=== PATIENT | male | born 1960 | race Caucasian/White ===

== ENCOUNTER 2017-03-23 08:55 | Day surgery (SDC) | payer OTHER ==
[~2017-03-23] VITALS: Ht 175.3 cm; Wt 91.3 kg
[~2017-03-23 08:55] MED LIST: Aspirin EC81 MG
== END 2017-03-23 11:12 | disposition home or self-care (01) ==
LOC: ORSCSDS 08:55
PROVIDERS: Internal Medicine Gastroenterology
PROC: 0DJD8ZZ Inspection of Lower Intestinal Tract, Via Natural or Artificial Opening Endoscopic (ICD-10-PCS; principal; 2017-03-23 10:30)
DX: Z86.010 Personal history of colon polyps (principal); B19.20 Unspecified viral hepatitis C without hepatic coma; F17.210 Nicotine dependence, cigarettes, uncomplicated
CPT/HCPCS: J0330; J1980; J2405; J7120

== ENCOUNTER 2017-03-26 08:54 | Day surgery (SDC) | payer OTHER | END 2017-03-26 22:53 | disposition home or self-care (01) | LOC: US 08:54 | PROVIDERS: Radiology Diagnostic Radiology | PROC: 0FB03ZX Excision of Liver, Percutaneous Approach, Diagnostic (ICD-10-PCS; principal; 2017-03-26 10:00) | DX: B18.2 Chronic viral hepatitis C (principal); Z86.010 Personal history of colon polyps; F17.210 Nicotine dependence, cigarettes, uncomplicated; D69.6 Thrombocytopenia, unspecified; K74.60 Unspecified cirrhosis of liver | CPT/HCPCS: 47000; 76942; 88307; 88313 ==

== ENCOUNTER 2017-05-08 11:32 | Day surgery (SDC) | payer OTHER ==
[~2017-05-08] VITALS: Ht 175.3 cm; Wt 90.2 kg
== END 2017-05-08 14:28 | disposition home or self-care (01) ==
LOC: ORSCSDS 11:32
PROVIDERS: Internal Medicine Gastroenterology
PROC: 0DBL8ZX Excision of Transverse Colon, Via Natural or Artificial Opening Endoscopic, Diagnostic (ICD-10-PCS; principal; 2017-05-08 13:00)
PROC: 0DBN8ZX Excision of Sigmoid Colon, Via Natural or Artificial Opening Endoscopic, Diagnostic (ICD-10-PCS; principal; 2017-05-08 13:00)
PROC: 0DBM8ZX Excision of Descending Colon, Via Natural or Artificial Opening Endoscopic, Diagnostic (ICD-10-PCS; principal; 2017-05-08 13:00)
DX: Z86.010 Personal history of colon polyps (principal); D12.3 Benign neoplasm of transverse colon; K63.5 Polyp of colon; K57.30 Diverticulosis of large intestine without perforation or abscess without bleeding; K64.8 Other hemorrhoids; F17.210 Nicotine dependence, cigarettes, uncomplicated
CPT/HCPCS: 88305; J1980; J2250; J3010; J7120

== ENCOUNTER 2022-05-02 11:38 | Inpatient (IN) | payer OTHER ==
[~2022-05-02] VITALS: Ht 177.8 cm; Wt 97.5 kg
[2022-05-02 11:55] LABS: Calcium, Ionized (POC) 0.77 mmol/L (1.10-1.46); Chloride (POC) 106 mmol/L (98-108); Creatinine (POC) 1.8 mg/dL (0.8-1.3); Glucose (ISTAT POC) 111 mg/dL (70-99); Hemoglobin (POC) 15.6 g/dL (13.5-17.5); Potassium (POC) 4.3 mmol/L (3.5-5.5); Sodium (POC) 135 mmol/L (135-148); Total CO2 (POC) 12 mmol/L (21-32)
[2022-05-02 11:56] LABS: Base Excess Venous -13.9 mmol/L; Bicarbonate Venous 15.5 mmol/L (24.0-30.0); PCO2 Venous 29 mmHg (38-42); pH Blood Venous 7.26 (7.34-7.37)
[2022-05-02 12:08] LABS: BASOPHILS ABSOLUTE AUTO 0.06 K/mm3 (0.00-0.23); BASOPHILS PERCENT AUTO 1 % (0-2); Hemoglobin 20.1 g/dL (13.5-17.5); LYMPHOCYTES ABSOLUTE AUTO 0.67 K/mm3 (0.84-5.20); LYMPHOCYTES PERCENT AUTO 9 % (21-46); MONOCYTES ABSOLUTE AUTO 0.52 K/mm3 (0.16-1.47); MONOCYTES PERCENT AUTO 7 % (4-13); Mean Corpuscular Volume 94 fL (80-100); NRBC ABSOLUTE 0.04 K/mm3 (0.00-0.02); NRBC Auto 0.6 /100 WBC (0.0-0.2); Platelet Count 74 K/mm3 (150-400); RDW Coefficient Variation 19.9 % (11.7-14.2); RDW Standard Deviation 61.7 fL (35.1-46.3); Red Blood Cell Count 5.92 M/mm3 (4.30-5.90); White Blood Cell Count 7.21 K/mm3 (4.00-11.30)
[2022-05-02 12:28] LABS: Albumin, Blood 2.2 g/dL (3.4-5.0); Albumin/Globulin Ratio 0.6 (0.8-1.8); Bilirubin, Total 4.6 mg/dL (0.1-1.0); Bun/Creatinine Ratio 32.9 (12.0-20.0); Calcium, Blood 8.8 mg/dL (8.5-10.1); Creatinine, Blood 2.16 mg/dL (0.60-1.20); Potassium, Blood 5.4 mmol/L (3.5-5.5); Total Protein, Blood 6.2 g/dL (6.4-8.2)
[2022-05-02 12:29] LABS: Hematocrit 55.9 % (37.0-53.0)
[2022-05-02 12:30] LABS: EOSINOPHILS ABSOLUTE AUTO 0.01 K/mm3 (0.00-0.68); EOSINOPHILS PERCENT AUTO 0 % (0-6); IMMATURE GRAN ABSOLUTE AUTO 0.02 K/mm3 (0.00-0.10); IMMATURE GRAN PERCENT AUTO 0 % (0-1); NEUTROPHILS ABSOLUTE AUTO 5.93 K/mm3 (1.96-9.15); NEUTROPHILS PERCENT AUTO 82 % (41-73)
[2022-05-02] MEDS ORDERED: CABOMETYX60 MG PO (13:04)
[2022-05-02 14:46] LABS: PO2 Arterial 93.5 mmHg (80-100); pH Blood Arterial 7.25 (7.35-7.45)
--- NOTE | 2022-05-02 16:09 | NUR ---
05/02/22 [address] DEAL; SEE ANESTHESIA RECORDS.
[2022-05-02 17:48] LABS: Base Excess Venous -11.9 mmol/L; Bicarbonate Venous 16.1 mmol/L (24.0-30.0); PCO2 Venous 35.7 mmHg (38-42); pH Blood Venous 7.25 (7.34-7.37)
[2022-05-02 17:55] LABS: Hematocrit 50.6 % (37.0-53.0); Mean Corpuscular HGB 33.3 pg (26.0-34.0); Mean Corpuscular HGB Conc 35.6 g/dL (31.5-36.5); Mean Corpuscular Volume 94 fL (80-100); NRBC ABSOLUTE 0.03 K/mm3 (0.00-0.02); NRBC Auto 0.7 /100 WBC (0.0-0.2); Platelet Count 58 K/mm3 (150-400); RDW Coefficient Variation 19.6 % (11.7-14.2); Red Blood Cell Count 5.41 M/mm3 (4.30-5.90); White Blood Cell Count 4.53 K/mm3 (4.00-11.30)
--- NOTE | 2022-05-02 18:04 | NUR ---
Met with took her to room. She is very fatigued and does not want much conversation. Spent most of the time validating her fears. She understands the gravity. Dr marie in and discussed code status she would like to stay full treatment but understands futility of cpr and agreed to DNR. She understands day by day. She needs to go home and care for their four year old child and get home before th snow. they do not have a kajal and do not want prayer. Will continue supportive visits. pt kps score is 20%
[2022-05-02 18:29] LABS: Albumin, Blood 2.5 g/dL (3.4-5.0); Albumin/Globulin Ratio 0.9 (0.8-1.8); Bilirubin, Total 3.5 mg/dL (0.1-1.0); Bun/Creatinine Ratio 28.1 (12.0-20.0); Creatinine, Blood 2.7 mg/dL (0.60-1.20); Globulin, Blood 2.9 g/dL (2.2-4.0); Potassium, Blood 5.2 mmol/L (3.5-5.5); Total Protein, Blood 5.4 g/dL (6.4-8.2)
--- NOTE | 2022-05-02 18:34 | NUR ---
SHIFT SUMMARY: PT ADMITTED TO ICU @ 1515. PT OBTUNDED. RR 40-50'S. HR 140'S SVT. SBP 100-110'S. LUNGS COARSE THROUGH OUT AND RESPIRATIONS AUDIBLY MOIST. PT HAS HEMATEMESIS ON HIS FACE. ORAL CARE DONE AND LARGE AMOUNT OF THICK, DARK, BLOODY SECRETIONS/BLOOD CLOTS REMOVED FROM PT MOUTH. PT WITH INCREASED WOB AND SOB. DR. HDZ AND RT SUMMONED TO BEDSIDE @ 1520. RSI @ 1528. PT GIVEN A TOTAL OF 100MG OF PROPOFOL IVP BY DR. HDZ FOR INTUBATION-THEN PROPOFOL DRIP INITIATED @ 20 MCG/KG/MIN.8.0 ETT PLACED-25 @ LIP. ETT TO VENT: AC/VC+ 15, TV 450, PEEP 5, FIO2 100%. ETT SUCTION PRODUCTIVE OF COPIOUS AMOUNT OF DARK, BLOODY SECRETIONS. RIJ CENTRAL LINE PLACED BY DR. HDZ @ 1600. ETT AND RIJ PLACEMENT CONFIRMED BY DR. HDZ @ 1615. ETT ADVANCED TO 27 CM PER VERBAL ORDER DR. HDZ. DR. MEEK HAS BEEN CONSULTED. DR. MACARIO IN [place] DURING CENTRAL LINE PLACEMENT AND ORDER GIVEN FOR RP @ 1800. DR. BALTAZAR CONSULTED. INFORMED CONSENT FOR EGD DONE @ 1645. PT UPDATED BY DR. BALTAZAR AT THAT TIME. BLOOD CONSENT AND CONTACT INFO OBTAINED. EGD START @ 1649 AND END @ 1654. PT RECEIVED FENTANYL 100 MCG IVP X 1 FOR PAIN/SEDATION ADJUNCT FOR PROCEDURE. POST PROCEDURE-PT GIVEN REGLAN 10 MG IVP X 1, AND ALBUMIN 25% PER DR. BALTAZAR. ALSO, FISRT DOSE OF ZOSYN INITIATED. SODIUM BICARB DRIP INFUSING @ 75 CC/HR. PROTONIX DRIP @ 8 MG/HR, SANDOSTATIN @ 50 MCG/HR, AND PROPOFOL DRIP @ 45 MCG/KG/MIN. MAP TRENDING IN THE 30'S-LEVOPHED DRIP INITIATED @ 10 MCG/MIN PER DR. HDZ ORDERS. PT IN TO SEE PT WITH HOLLI ELKINS FROM PALLIATIVE CARE. THE DECISION WAS MADE TO CHANGE PT CODE STATUS TO DNR. DR. MEEK IN TO SEE PT @ 1845-FULL UPDATE GIVEN. ORDERS RECEIVED FOR VASOPRESSIN DRIP, CALCIUM CHLORIDE 2 AMPS IVPB, AND ROUTINE AM LABS ORDERED-SEE ORDERS. OGT AND RECTAL TUBE TO BE PLACED-WILL INITIATE LACTULOSE EMEMAS PER DR. BALTAZAR ORDERS.
[2022-05-02 19:11] LABS: International Normalized Ratio 2.31
--- NOTE | 2022-05-02 19:18 | NUR ---
RENAL PANEL RESULTS PHONED TO DR. MACARIO. BICARB DRIP INCREASED TO 125 CC/HR. REPORT GIVEN TO LINDSAY WHALEN.
[2022-05-02 19:30] LABS: BAND PERCENT MAN 32 % (0-8); BASOPHILS PERCENT MAN 0 % (0-2); EOSINOPHILS ABSOLUTE MAN 0.09 K/mm3 (0.00-0.68); EOSINOPHILS PERCENT MAN 2 % (0-6); LYMPHOCYTES PERCENT MAN 9 % (21-46); METAMYELOCYTE ABSOLUTE MAN 0.09 K/mm3 (0.00-0.00); METAMYELOCYTE PERCENT MAN 2 % (0-0); MONOCYTES ABSOLUTE MAN 0.13 K/mm3 (0.16-1.47); MONOCYTES PERCENT MAN 3 % (4-13); SEG NEUTROPHILS PERCENT MAN 52 % (41-73); TOTAL CELLS COUNTED 100
[2022-05-02 19:43] LABS: Source, Urine Foley catheter
[2022-05-02 19:48] LABS: Appearance, Urine Hazy (Clear); Blood, Urine 4+ (Neg); Color, Urine Amber (P-Yellow); Glucose Qualitative, Urine Neg (Neg); Ketones, Urine 1+ (Neg); Leukocyte Esterase, Urine 1+ (Neg); Nitrite, Urine Neg (Neg); Protein, Urine 2+ (Neg); Specific Gravity, Urine 1.025 (1.003-1.022); Urobilinogen, Urine 2+ (Normal)
[2022-05-02 19:49] LABS: Bilirubin, Urine 2+ (Neg)
[2022-05-02 20:15] LABS: Amorphous Mod (0-Heavy); Bacteria Many /hpf; Squamous Epithelial Cells Rare /hpf (Few); Transitional Epithelial Cells Rare /hpf (0-Rare); White Blood Cells, Urine 0-2 /hpf (0-5)
[2022-05-02 20:16] LABS: Renal Epithelial Rare /hpf (0-Rare)
--- NOTE | 2022-05-02 21:35 | NUR ---
PATIENT INTUBATED AND SEDATED WITH PROPOFOL 35 MCG. GRIMACE WITH SLIGHT STIMULI. ETT IN PLACE WITH VENT AC VC+ 15, TV 450, PEEP 5, FIO2 60% SUCTIONING DARK BROWN SPUTUM VIA ETT, SPEC SENT TO LAB. BRIGHT RED AND BLACK ORAL SECRETIONS SUCTIONED. OCTREOTIDE AND PROTONIX DRIP INFUSING. LEVOPHED DRIP FOR HYPOTENSION TITRATED DOWN TO 2 MCG. BICARB DRIP INCREASED BY DOCTOR MACARIO TO 125 CC/HR. RECTAL TUBE PLACED FOR LACTULOSE ENEMA'S, ENEMA DWELLING AT THIS TIME.
--- NOTE | 2022-05-02 22:46 | NUR ---
OG PLACED AND PUT TO SUCTION, REMOVING DARK MAROON GASTRIC SECRETIONS. RECTAL TUBE DRAINING LIQUID MAROON STOOL WITH LACTULOSE ENEMA
[2022-05-03 04:20] LABS: PCO2 Arterial 42.3 mmHg (35-45); PO2 Arterial 79.8 mmHg (80-100); pH Blood Arterial 7.45 (7.35-7.45)
[2022-05-03 05:21] LABS: Hematocrit 40.5 % (37.0-53.0)
[2022-05-03 05:39] LABS: Albumin, Blood 2.4 g/dL (3.4-5.0); Albumin/Globulin Ratio 1.1 (0.8-1.8); Bilirubin, Total 5.1 mg/dL (0.1-1.0); Bun/Creatinine Ratio 39.2 (12.0-20.0); Calcium, Blood 8.7 mg/dL (8.5-10.1); Creatinine, Blood 2.17 mg/dL (0.60-1.20); Globulin, Blood 2.1 g/dL (2.2-4.0); Magnesium, Blood 2.6 mg/dL (1.6-2.4); Phosphorus, Blood 5.6 mg/dL (2.5-4.9); Potassium, Blood 4.5 mmol/L (3.5-5.5); Total Protein, Blood 4.5 g/dL (6.4-8.2)
--- NOTE | 2022-05-03 06:59 | NUR ---
SUMMARY PATIENT REMAINS INTUBATED AND SEDATED WITH PROPOFOL 35 MCG. VENT AC VC+ 15, TV 450, PEEP 5, FIO2 35% SUCTIONING DARK MAROON VIA ETT, AND ORAL. OG IN PLACE TO LIS WITH 200 CC OF DARK MAROON GASTRIC. RECTAL TUBE IN PLACE FOR LACTULOSE ENEMA'S DRAINING MAROON STOOL. OCTREOTIDE AND PROTONIX DRIP CONTINUES. DOCTOR WILDER AND DOCTOR RENALDO IN TO SEE PATIENT, SEE NEW ORDERS
--- NOTE | 2022-05-03 09:00 | NUR ---
Assumed care for pt at 0700. He is intubated w/ 8.0 ETT 26 cm at upper lip, upper/lower dentures are out and in a container on the room counter, OG in place and set to low, intermittent suction. Vent settings AC 450/5/35%. R IJ central line in place, Propofol gtt 35 mcg/kg/min, Protonix 10 ml/hr, Octeotride 50 mcg/hr, and NS @ 75 ml/hr. Ch and rectal tubes in place. SCDs in place.
--- NOTE | 2022-05-03 11:06 | NUR ---
Spoke w/ Dr. Davidson w/ GI. Advised pt had OG tube in place. Requested change to Lactulose PO, and he agreed. Will DC Lactulose enema. Also asked about feeding and he advised it could be started.
--- NOTE | 2022-05-03 17:23 | NUR ---
Propofol gtt stopped at [address] Quiroz to assess pt response. Octeotride gtt stopped at 1521 per order.
--- NOTE | 2022-05-03 18:46 | NUR ---
Pt remained intubated throughout the shift w/ 8.0 ETT, vent settings 15/450/5/35%. Propofol gtt held since 1510 for sedation vacation, pt remained unresponsive except for withdrawaling from painful stimuli. OG tube remains in place, lactulose enema converted to PO lactulose. Rectal tube and taylor remain in place, 300 ml stool out and 900 ml urine output for this shift. Octeotride gtt stopped but Protonix gtt continues, along w/ NS @ 75 ml/hr. SCDs remain in place.
--- NOTE | 2022-05-03 21:34 | NUR ---
ASSUME CARE PATIENT INTUBATED NO SEDATION AT THIS TIME. RESPONDS TO PAINFUL STIMULI, NOT FOLLOWING COMMANDS.
--- NOTE | 2022-05-04 02:56 | NUR ---
NOTIFIED DR. MEEK REGARDING RHYTHM CHANGE TO AFIB RVR. ORDERS RECEIVED
[2022-05-04 03:36] LABS: Hematocrit 37.1 % (37.0-53.0); Hemoglobin 13.5 g/dL (13.5-17.5)
[2022-05-04 03:57] LABS: Albumin, Blood 3.5 g/dL (3.4-5.0); Anion Gap 9 mmol/L (6-16); Blood Urea Nitrogen 86 mg/dL (8-24); Bun/Creatinine Ratio 51.8 (12.0-20.0); CO2, Blood 28 mmol/L (21-32); Calcium, Blood 8.3 mg/dL (8.5-10.1); Chloride, Blood 103 mmol/L (98-108); Creatinine, Blood 1.66 mg/dL (0.60-1.20); Glomerular Filtration Rate 47 (60-); Glucose, Blood 143 mg/dL (70-99); Phosphorus, Blood 3.6 mg/dL (2.5-4.9); Potassium, Blood 3.9 mmol/L (3.5-5.5); Sodium, Blood 140 mmol/L (136-145)
--- NOTE | 2022-05-04 05:30 | NUR ---
SHIFT SUMMARY PATIENT CONTINUES INTUBATED ON MECHANICAL VENTILATION W/NO SEDATION. MEDICATED X2 W/FENTANYL. PATIENT NOT FOLLOWING COMMANDS. OPENS EYES AND MOVES EXTREMETIES WITH STIMULATION. PATIENT RYTHYM CHANGED TO AFIB RVR DILTIAZEM STARTED. PATIENT WITH CRONIN - ADEQUATE OUTPUT. FMS IN PLACE. REPORT TO ONCOMING LINDSAY
--- NOTE | 2022-05-04 14:30 | NUR ---
ASSUMED CARE PT. REMAINS INTUBATED, VENT SETTINGS CURRETNLY ACVC 15, TV 450, 35% FIO2 AND PEEP 5. PT. GRIMACING AND RESTLESS IN BED AT TIMES. PROPOFOL GTT RESTARTED AT THIS TIME AT 30MCG/KG/MIN. PT LS CLEAR, THICK DELAROSA SECRETIONS IN ETT WITH SUCTIONING. PT. OG TUBE CLAMPED AT THIS TIME. PT. ABD DISTENDED, SOFT. PT. HAS RECTAL TUBE DRAINING BROWNISH RED LIQUID, RECTAL TUBE BAG CHANGED. PT. HAS CRONIN TEMP PROBE DRAINING TO GRAVITY.
--- NOTE | 2022-05-04 18:11 | NUR ---
SHIFT SUMMARY PT. REMAINS SEDATED AND INTUBATED AT THIS TIME. PT. CARDIZEM PLACED ON STAND BY THIS SHIFT AT 1700. PT PROPOFOL RESTARTED THIS SHIFT. PT. TF INITIATED THIS PM AT 25ML/HR GOAL OF 50ML/HR. CONTINUES WITH LIQUID RUST COLOR STOOL IN RECTAL TUBE. VSS AT THIS TIME. REPORT TO ONCOMING RN.
--- NOTE | 2022-05-04 18:29 | NUR ---
CASE CONF WITH RN, PT IS UNCHANGED, INTUBATED AND UNRESPONSIVE. NO FAMILY IN THE ROOM AT THIS TIME, PT , ANGELI IS COPING WELL. SHE WILL VISIT TOMORROW, WILL CONTINUE TO MAKE SUPPORTIVE VISITS.
--- NOTE | 2022-05-04 19:15 | NUR ---
ASSUMED CARE PATIENT INTUBAED/SEDATED RESPONDS TO PAINFUL STIMULI.
[2022-05-05 03:32] LABS: Hematocrit 28.7 % (37.0-53.0); Hemoglobin 10.4 g/dL (13.5-17.5)
[2022-05-05 03:56] LABS: Albumin, Blood 3.3 g/dL (3.4-5.0); Anion Gap 1 mmol/L (6-16); Blood Urea Nitrogen 95 mg/dL (8-24); Bun/Creatinine Ratio 59.7 (12.0-20.0); CO2, Blood 32 mmol/L (21-32); Calcium, Blood 7.7 mg/dL (8.5-10.1); Chloride, Blood 111 mmol/L (98-108); Creatinine, Blood 1.59 mg/dL (0.60-1.20); Glomerular Filtration Rate 49 (60-); Glucose, Blood 137 mg/dL (70-99); Magnesium, Blood 3.4 mg/dL (1.6-2.4); Phosphorus, Blood 1.7 mg/dL (2.5-4.9); Potassium, Blood 3.5 mmol/L (3.5-5.5); Sodium, Blood 144 mmol/L (136-145)
--- NOTE | 2022-05-05 04:59 | NUR ---
LABS CALL TO DR. MACARIO, ORDERS RECEIVED
--- NOTE | 2022-05-05 06:20 | NUR ---
PATIENT CONTINUES INTUBATED/SEDATED. RESPONDS TO PAIN. DOES NOT FOLLOW COMMANDS. ON PROPOFOL FOR SEDATION. PATIENT CONTINUES WITH CRONIN AND FMS. FMS OUTPUT IS MAROON IN COLOR. TUBE FEEDS STOPPED AT 2114 FOR MAROON/BLOODY RESIDUALS. REPORT TO ONCOMING LINDSAY
--- NOTE | 2022-05-05 08:46 | NUR ---
Mobile of Care: Care assumed at 0700hr. Patient intubated and sedated with propofol gtt at 15mcg/kg/min. Responds to noxious stimuli and withdraws all extremities, not following any commands. Pupils equal and reactive, positive gag and cough reflex. Vent to AC 14/450/5/30%, spo2- 93-94%, tolerating vent without difficulty, VSS. OG clamped and shift change due to bloody residuals noted on NOC shift. OG placed to LIS shortly after shift change, minimal dark blood noted in tubing. Rectal tube in place, moderate amount of dark maroon bloody stool noted in tubing and bag. Central line to rt IJ patent and intact. Ch cath patent and intact, draining clear dark yellow urine. Dr. Small to bedside shortly after shift change, aware of bloody stool and OG output. Dr. Small to speak with patient's r/t plan of care and possible transfer to higher level of care r/t IR intervention to treat GI bleed. Awaiting update at this time. Will continue to monitor.
[2022-05-05 12:19] LABS: BASOPHILS ABSOLUTE AUTO 0.04 K/mm3 (0.00-0.23); BASOPHILS PERCENT AUTO 0 % (0-2); EOSINOPHILS ABSOLUTE AUTO 0.13 K/mm3 (0.00-0.68); EOSINOPHILS PERCENT AUTO 1 % (0-6); Hematocrit 27.2 % (37.0-53.0); Hemoglobin 9.7 g/dL (13.5-17.5); IMMATURE GRAN ABSOLUTE AUTO 0.15 K/mm3 (0.00-0.10); IMMATURE GRAN PERCENT AUTO 2 % (0-1); LYMPHOCYTES ABSOLUTE AUTO 1.17 K/mm3 (0.84-5.20); LYMPHOCYTES PERCENT AUTO 12 % (21-46); MONOCYTES ABSOLUTE AUTO 0.96 K/mm3 (0.16-1.47); MONOCYTES PERCENT AUTO 10 % (4-13); Mean Corpuscular HGB 34.5 pg (26.0-34.0); Mean Corpuscular HGB Conc 35.7 g/dL (31.5-36.5); Mean Corpuscular Volume 97 fL (80-100); NEUTROPHILS ABSOLUTE AUTO 7.22 K/mm3 (1.96-9.15); NEUTROPHILS PERCENT AUTO 75 % (41-73); NRBC ABSOLUTE 0.12 K/mm3 (0.00-0.02); NRBC Auto 1.2 /100 WBC (0.0-0.2); RDW Coefficient Variation 20.2 % (11.7-14.2); RDW Standard Deviation 62.3 fL (35.1-46.3); Red Blood Cell Count 2.81 M/mm3 (4.30-5.90); White Blood Cell Count 9.67 K/mm3 (4.00-11.30)
[2022-05-05 12:33] LABS: Platelet Count 20 K/mm3 (150-400)
--- NOTE | 2022-05-05 15:01 | NUR ---
Comfort Care: Patient's /significant other at bedside throughout morning. After discussion with Dr. Small this morning, made decision to transition to comfort measures. Patient pre-medicated with prn morphine and ativan, extubated at 1445hr. Patient appears calm and comfortable. Multiple family members at bedside. Will continue to monitor.
--- NOTE | 2022-05-05 19:54 | NUR ---
ASSUMED CARE PATIENT LYING IN BED WITH EYES CLOSED, SNORING WITH GURGLING SOUNDS. ATTEMPTED ORAL SUCTION WITH MINIMAL SECRETIONS. SCOPOLOAMINE PATCH AND ROXANOL 10MG ADMINISTERED FOR SECRETIONS PER EMAR. LYING IN CHAIR AT BEDSIDE. EDUCATED ON SIGNS AND SYMPTOMS OF DISCOMFORT TO LOOK FOR AND NOTIFY ME IF ANYTHING IS NEEDED. MONITOR SHOWS SINUS TACH WITH RATE 100'S AND SPO2 60'S-70'S. PATIENT DOES NOT AWAKEN TO STIMULI OR WITHDRAW FROM PAIN, BUT MAKES SUBTLE MOVEMENTS WITH EXTREMITIES RANDOMBLY. NO MEDICATIONS INF AT THIS TIME. CRONIN CATHETER AND RECTAL TUBE IN PLACE FOR COMFORT AND DRAINING TO GRAVITY. REPORT RECEIVED FROM LINDSAY ANNE.
--- NOTE | 2022-05-06 05:33 | NUR ---
SHIFT SUMMARY NO MAJOR CHANGES OR EVENTS DURING SHIFT. PATIENT STILL VJ SNORING/GURGLING RESPIRATIONS DESPITE SCOPOLAMINE, ROXANOL, AND MORPHINE IV. PATIENT MAKES SMALL MOVEMENTS INDEPENDENTLY, BUT DOES NOT OPEN EYES OR FOLLOW COMMANDS. NO GRIMACING, TENSION, OR MOANING DURING SHIFT. PATIENT'S AT BEDSIDE T/O SHIFT.
== END 2022-05-06 05:59 | DRG 377 ==
LOC: ER 11:38 → ICUW 14:20
PROVIDERS: Emergency Medicine; Internal Medicine Critical Care Medicine; Internal Medicine Nephrology; Student in an Organized Health Care Education/Training Program; ADMIT Family Medicine
PROC: 30233N1 Transfusion of Nonautologous Red Blood Cells into Peripheral Vein, Percutaneous Approach (ICD-10-PCS; 2022-05-02)
PROC: 02HV33Z Insertion of Infusion Device into Superior Vena Cava, Percutaneous Approach (ICD-10-PCS; 2022-05-02)
PROC: 4A033R1 Measurement of Arterial Saturation, Peripheral, Percutaneous Approach (ICD-10-PCS; 2022-05-02)
PROC: 0T9B70Z Drainage of Bladder with Drainage Device, Via Natural or Artificial Opening (ICD-10-PCS; 2022-05-02)
PROC: 3E033XZ Introduction of Vasopressor into Peripheral Vein, Percutaneous Approach (ICD-10-PCS; 2022-05-02)
PROC: 5A1945Z Respiratory Ventilation, 24-96 Consecutive Hours (ICD-10-PCS; 2022-05-02)
PROC: 0BH17EZ Insertion of Endotracheal Airway into Trachea, Via Natural or Artificial Opening (ICD-10-PCS; 2022-05-02)
PROC: 0DJ08ZZ Inspection of Upper Intestinal Tract, Via Natural or Artificial Opening Endoscopic (ICD-10-PCS; principal; 2022-05-02 15:30)
DX: K26.4 Chronic or unspecified duodenal ulcer with hemorrhage (principal); J69.0 Pneumonitis due to inhalation of food and vomit; K76.7 Hepatorenal syndrome; J96.01 Acute respiratory failure with hypoxia; C22.0 Liver cell carcinoma; N17.9 Acute kidney failure, unspecified; K76.6 Portal hypertension; E87.20 Acidosis, unspecified; E87.1 Hypo-osmolality and hyponatremia; D62 Acute posthemorrhagic anemia; K74.60 Unspecified cirrhosis of liver; Z51.5 Encounter for palliative care; Z66 Do not resuscitate; R57.8 Other shock; N18.9 Chronic kidney disease, unspecified; E86.0 Dehydration; I48.91 Unspecified atrial fibrillation; I12.9 Hypertensive chronic kidney disease with stage 1 through stage 4 chronic kidney disease, or unspecified chronic kidney disease; F17.210 Nicotine dependence, cigarettes, uncomplicated; K76.82 Hepatic encephalopathy; B18.2 Chronic viral hepatitis C; E87.70 Fluid overload, unspecified; E83.39 Other disorders of phosphorus metabolism; E83.41 Hypermagnesemia; R74.8 Abnormal levels of other serum enzymes; K20.90 Esophagitis, unspecified without bleeding; I85.10 Secondary esophageal varices without bleeding; E87.5 Hyperkalemia; E88.09 Other disorders of plasma-protein metabolism, not elsewhere classified; D75.1 Secondary polycythemia; B96.20 Unspecified Escherichia coli [E. coli] as the cause of diseases classified elsewhere; Z90.49 Acquired absence of other specified parts of digestive tract; Z79.899 Other long term (current) drug therapy; Z98.890 Other specified postprocedural states; Z79.2 Long term (current) use of antibiotics; Z79.891 Long term (current) use of opiate analgesic; Z92.21 Personal history of antineoplastic chemotherapy
CPT/HCPCS: 31500; 36415; 36430; 36556; 36600; 51702; 71045; 76770; 80047; 80053; 80069; 81001; 82140; 82330; 82803; 83605; 83735; 84100; 84300; 85014; 85018; 85025; 85610; 85730; 86850; 86900; 86901; 86923; 87070; 87077; 87086; 87186; 87205; 93005; 93010; 94002; 94003; 96365-59; 96366-59; 96375-59; 99291-25; A9270; C1751; C9113; J0171; J0330; J0696; J1430; J2001; J2060; J2270; J2354; J2370; J2543; J2704; J2765; J3010; J7030; J7050; J7060; J7070; P9016; P9047